=== PATIENT | male | born 1980 | race Hispanic/Latino ===

== ENCOUNTER 2024-12-02 07:08 | Emergency (ER) | payer OTHER, BC ==
[~2024-12-02] VITALS: Ht 180.3 cm; Wt 121.1 kg
[2024-12-02] MEDS ORDERED: teTANUS/diphthERIA TOXOID [ADULT] 0.5 ML VIAL IM ONE (08:00)
[2024-12-02] MEDS: LIDOCAINE HCL 1% 20 ML VIAL INJ SCH (08:10)
--- NOTE | 2024-12-02 08:20 | HMCIMG ---
Exam Type: CT HEAD/BRAIN W/O CONTRAST Clinical Information: injury Comparison: None CT Dose Index (CTDI): 57.33 mGy Dose Length Product (DLP): 956.79 total mGy-cm Findings: The examination is unremarkable. Booth-white matter junction is preserved. No intra or extra axial lesions or fluid collections are seen. Specifically, booth and white matter are normal in signal characteristics with normal caliber of ventricles and periventricular cisterns with no evidence of intra or or extra-axial hemorrhage, lacunar infarct, or major territorial infarct, mass, or other abnormality. There are no infarcts. There are no hemorrhages. Periventricular white matter locations are preserved. The orbital contents and structures of the posterior fossa are intact. Impression: Normal CT of the head. This study was performed using dose reduction techniques to include automated exposure control and/or adjustment of the mA and/or kV according to patient size.
--- NOTE | 2024-12-02 08:52 | ERN ---
ED Note History of Present Illness Stated Complaint: LACERATION RIGHT EYEBROW Chief Complaint: Laceration/Avulsion Time Seen by MD: 07:20 Dictation: 44-year-old male ground level fall with laceration above the right eyebrow, reports that he had a mechanical fall while going to the bathroom this morning. Unsure if he had loss of consciousness or not after the injury due to the pain but he did not have syncope and no other injuries no medical problems. Allergies: Coded Allergies: No Known Allergies (Unverified Allergy, Unknown, 04/19/24) Past Medical History Past Medical History: Hypertension Surgical History: None Social History: Drugs, ETOH Review of System Dictation Constitutional: Negative for fever,chills, and weight loss Eyes: Negative for injury, pain,redness, and discharge ENT: Negative for injury,pain or swelling Cardiovascular: Negative for chest pain, palpitations, and edema Respiratory: Negative for shortness of breath, cough, and wheezing, Abdomen/GI: Negative for abdominal pain, nausea, vomiting, diarrhea, and constipation Back: Negative for injury and pain : Negative for injury, bleeding and discharge MS/Extremity: Negative for injury and deformity Skin per HR Psych: Negative for suicide ideation, homicidal ideation, and hallucinations Initial Vital Sign VS Vital Signs Date Time Temp Pulse Resp B/P (MAP) Pulse Ox O2 Delivery O2 Flow Rate FiO2 12/02/24 07:09 97.0 78 20 168/111 99 Room Air 0 12/02/24 07:20 21 Physical Exam Dictation General: awake, alert, NAD Head/Face: Normocephalic, atraumatic Eyes: PERRL, EOMI, vision at baseline ENT: oral cavity clear, TMs clear, no signs of infection Neck: Trachea midline, supple, no nuchal rigidity Cardiovascular: RRR, normal S1/S2, No MRGs, no JVD Respiratory: CTAB, no respiratory distress, No rales or wheezes Abdomen: Soft, non-tender, non-distended, normal bowel sounds, no guarding or rebound. Skin: Warm, dry, normal turgor, no rash, laceration to the right eyebrow by cm MS/Extremity: Pulses equal, no cyanosis, neurovascular intact, FROM Neuro: COAx4, GCS 15, strength 5/5, CN 2-12 intact, normal cerebellar exam, normal gait, Psych: Normal behavior, mood, and affect normal Results (Laboratory/Radiology) CT Scan Comment: CT head negative ED Course ED Course Orders Procedure Category Date Status Time Ct Head/Brain W/O CT 12/02/24 Resulted Contrast 07:41 Tetanus,Diphtheria PHA 12/02/24 Complete Tox [Adult] (Diphther 08:00 Lidocaine Hcl 1% 20ml PHA 12/02/24 Complete Vial (Lidocaine Hc 08:00 Current Medications Medications (Trade) Dose Ordered Sig/Tramaine Route PRN Reason Start Time Stop Time Status Last Admin Dose Admin Lidocaine HCl (Lidocaine HCl 1% 20ml Vial) 20 ml ONCE INJ 12/02/24 08:00 12/02/24 08:01 DC 12/02/24 08:10 Tetanus/ Diphtheria Toxoids Adsorbed (DiphthERIA-teTANUS TOXOID [ADULT]/ DECAVAC) 0.5 ml ONCE ONCE IM 12/02/24 08:00 12/02/24 08:28 DC Vital Signs Date Time Temp Pulse Resp B/P (MAP) Pulse Ox O2 Delivery O2 Flow Rate FiO2 12/02/24 07:20 97.0 70 20 168/111 99 Room Air* 0 21 12/02/24 07:09 97.0 78 20 168/111 99 Room Air 0 Medical Decision Making MDM MDM: Differential diagnosis: Rationale: Tests considered and ordered secondary to shared decision making include: Previous outside records reviewed: Old ER visits. Risk of complication and/or morbidity or mortality of patient management: None Medications-Per medication reconciliation Need for hospitalization: Patient does not meet criteria for hospitalization. Need for emergency major/minor surgery: No There are no social concerns with this patient. Prescription drug management Prescriptions will include symptomatic care Patient's prior external medical records from other ER visits were reviewed by me as indicated. Prior testing and results from previous visits were reviewed. Prior tests were taken into account with medical decision making and resource utilization, independent historian/historians were used to obtain complete medical history. I independently interpreted the test that were performed, results were reviewed by me and considered findings on radiology if ordered. Medical management and examination interpretation discussions were had by me with other qualified healthcare professionals as indicated for the patient's care. Laceration repaired CT of the head negative Procedure Wound Location: face Wound Length (cm): 5 Wound's Depth, Shape: superficial Wound Explored: clean Betadine Prep?: Yes Anesthesia: 1% Lidocaine Wound Repaired With: sutures Suture Size/Type: 4:0 Number of Sutures: 4 DX & DISP Disposition: Discharge Departure Impression: Primary Impression: Head injury Additional Impression: Facial laceration Condition: Stable Referrals: SELF,REFERRAL (PCP) CARLOS GONZALES MD Dec 02, 2024 08:52
--- NOTE | 2024-12-02 08:55 | NUR ---
SUTURED PT'S R APARNA. 4 STITCHES APPLIED. PT TOLERATED PROCEDURE WELL
[2024-12-02 09:00] VITALS: BP 169/93; PULSE 77; RESP 20; TEMP 97; O2SAT 99
== END 2024-12-02 09:16 | disposition home or self-care (01) ==
LOC: EDH 07:08
DX: S01.111A Laceration without foreign body of right eyelid and periocular area, initial encounter (principal); S09.90XA Unspecified injury of head, initial encounter; I10 Essential (primary) hypertension; W18.39XA Other fall on same level, initial encounter; Y93.89 Activity, other specified; Y92.89 Other specified places as the place of occurrence of the external cause; Y99.8 Other external cause status
CPT/HCPCS: 12013; 70450; 90714; 99284